=== PATIENT | female | born 1990 | race Caucasian/White ===

== ENCOUNTER 2017-09-17 20:37 | Outpatient (CLI) | payer MEDICAID, OTHER ==
[2017-09-17 21:32] LABS: APPEARANCE,URINE CLEAR; BILIRUBIN,URINE NEGATIVE (NEGATIVE); GLUCOSE, URINE NEGATIVE (NEGATIVE); KETONES,URINE 20 mg/dL (NEGATIVE); LEUKOCYTE ESTERASE,URINE NEGATIVE (NEGATIVE); NITRITE,URINE NEGATIVE (NEGATIVE); PROTEIN,URINE NEGATIVE (NEGATIVE); URINE SPECIFIC GRAVITY 1.002; UROBILINOGEN,URINE NEGATIVE mg/dL (<2.0)
[2017-09-17 21:47] LABS: URINE BARBITURATES SCREEN NEGATIVE; URINE METHADONE SCREEN NEGATIVE; URINE OPIATES LOW NEGATIVE; URINE PHENCYCLIDINE SCREEN NEGATIVE
== END 2017-09-17 23:10 | disposition home or self-care (01) ==
LOC: LC 20:37
PROVIDERS: ATTEND Obstetrics & Gynecology
PROC: 4A1HXCZ Monitoring of Products of Conception, Cardiac Rate, External Approach (ICD-10-PCS; principal; 2017-09-17)
DX: O47.03 False labor before 37 completed weeks of gestation, third trimester (principal); Z3A.33 33 weeks gestation of pregnancy
CPT/HCPCS: 59025; 80307; 81005

== ENCOUNTER 2017-09-20 19:05 | Outpatient (CLI) | payer MEDICAID ==
--- NOTE | 2017-09-20 19:16 | Non Stress Test Report ---
Non Stress Test Datetime Report Generated by CPN: 09/20/2017 19:16 DEMOGRAPHIC EGA NST: 33.1 INDICATION Indication for Study: Ordered by Provider URINE RESULTS Urine Protein, NST: Negative Urine Ketones - NST: Positive Urine Glucose - NST: Negative Urine Blood - NST: Negative MONITORING Monitor Explained: Monitor Explained; Test Explained; Patient Verbalized Understanding Time on Monitor: 09/17/2017 21:00 Time off Monitor: 09/17/2017 22:34 NST Duration: 94 NST INTERVENTIONS NST Interventions: PO Hydration; Reposition Patient Physician Notified NST: Dr Santillan BABY A: [id number] Contraction Frequency : irregular FHR Baseline : 140 Accelerations : 15X15 Decelerations : None Variability : Moderate 6-25bpm NST Review: Meets Criteria for Reactive NST NST Review and Verified By : Mauro Garcia rn NST Results: Reactive NST REPORT Report Trigger: Send Report
[2017-09-20 19:43] LABS: APPEARANCE,URINE CLEAR; BILIRUBIN,URINE NEGATIVE (NEGATIVE); GLUCOSE, URINE NEGATIVE (NEGATIVE); KETONES,URINE NEGATIVE (NEGATIVE); LEUKOCYTE ESTERASE,URINE NEGATIVE (NEGATIVE); NITRITE,URINE NEGATIVE (NEGATIVE); PROTEIN,URINE NEGATIVE (NEGATIVE); URINE SPECIFIC GRAVITY 1.006; UROBILINOGEN,URINE NEGATIVE mg/dL (<2.0)
[2017-09-20 19:54] LABS: URINE BARBITURATES SCREEN NEGATIVE; URINE METHADONE SCREEN NEGATIVE; URINE OPIATES LOW NEGATIVE
[2017-09-20 20:05] LABS: URINE PHENCYCLIDINE SCREEN NEGATIVE
--- NOTE | 2017-09-20 20:19 | Non Stress Test Report ---
Non Stress Test Datetime Report Generated by CPN: 09/20/2017 20:18 DEMOGRAPHIC Test Number: 2 EGA NST: 33.4 INDICATION Indication for Study: Ordered by Provider MONITORING Monitor Explained: Monitor Explained; Test Explained; Patient Verbalized Understanding Time on Monitor: 09/20/2017 19:27 Time off Monitor: 09/20/2017 20:02 NST Duration: 35 NST INTERVENTIONS NST Interventions: PO Hydration; Reposition Patient Physician Notified NST: Dr. Yun BABY A Movement : Present Contraction Frequency : irregular FHR Baseline : 140 Accelerations : 15X15 Decelerations : None Variability : Moderate 6-25bpm NST Review: Meets Criteria for Reactive NST NST Review and Verified By : Vazquez Rice RN NST Results: Reactive NST REPORT Report Trigger: Send Report
== END 2017-09-20 20:12 | disposition home or self-care (01) ==
LOC: LC 19:05
PROVIDERS: ATTEND Student in an Organized Health Care Education/Training Program
PROC: 4A1HXCZ Monitoring of Products of Conception, Cardiac Rate, External Approach (ICD-10-PCS; principal; 2017-09-20)
DX: O47.03 False labor before 37 completed weeks of gestation, third trimester (principal); Z3A.33 33 weeks gestation of pregnancy
CPT/HCPCS: 59025; 80307; 81001

== ENCOUNTER 2017-10-20 18:08 | Outpatient (CLI) | payer MEDICAID ==
[2017-10-20 19:17] LABS: APPEARANCE,URINE CLEAR; BILIRUBIN,URINE NEGATIVE (NEGATIVE); COLOR,URINE STRAW; GLUCOSE, URINE NEGATIVE (NEGATIVE); KETONES,URINE TRACE mg/dL (NEGATIVE); LEUKOCYTE ESTERASE,URINE TRACE (NEGATIVE); NITRITE,URINE NEGATIVE (NEGATIVE); PROTEIN,URINE NEGATIVE (NEGATIVE); URINE SPECIFIC GRAVITY 1.004; UROBILINOGEN,URINE NEGATIVE mg/dL (<2.0)
[2017-10-20] MEDS ORDERED: HYDROXYZINE PAMOATE 50 MG CAPSULE PO ONE (19:24)
[2017-10-20 19:29] LABS: URINE AMPHETAMINES SCREEN NEGATIVE; URINE BARBITURATES SCREEN NEGATIVE; URINE BENZODIAZEPINES SCREEN NEGATIVE; URINE COCAINE SCREEN NEGATIVE; URINE MARIJUANA (THC) SCREEN NEGATIVE; URINE METHADONE SCREEN NEGATIVE; URINE PHENCYCLIDINE SCREEN NEGATIVE
[2017-10-20] MEDS ORDERED: HYDROXYZINE PAMOATE 50 MG CAPSULE ONE (19:33)
[2017-10-20 20:20] LABS: APPEARANCE,URINE CLEAR; BILIRUBIN,URINE NEGATIVE (NEGATIVE); COLOR,URINE STRAW; GLUCOSE, URINE NEGATIVE (NEGATIVE); KETONES,URINE TRACE mg/dL (NEGATIVE); LEUKOCYTE ESTERASE,URINE TRACE (NEGATIVE); NITRITE,URINE NEGATIVE (NEGATIVE); PROTEIN,URINE NEGATIVE (NEGATIVE); URINE SPECIFIC GRAVITY 1.004; UROBILINOGEN,URINE NEGATIVE mg/dL (<2.0)
== END 2017-10-20 19:40 | disposition home or self-care (01) ==
LOC: LC 18:08
PROVIDERS: ATTEND Obstetrics & Gynecology
PROC: 4A1HXCZ Monitoring of Products of Conception, Cardiac Rate, External Approach (ICD-10-PCS; principal; 2017-10-20)
DX: O47.1 False labor at or after 37 completed weeks of gestation (principal); Z3A.37 37 weeks gestation of pregnancy
CPT/HCPCS: 59025; 81005; 81001; 80307; J3490

== ENCOUNTER 2017-10-27 10:32 | Outpatient (CLI) | payer MEDICAID ==
--- NOTE | 2017-10-27 10:37 | Non Stress Test Report ---
Non Stress Test Datetime Report Generated by CPN: 10/27/2017 10:37 DEMOGRAPHIC Test Number: 3 EGA NST: 37.6 INDICATION Indication for Study: Ordered by Provider Indication for Study (NST) Other: LC MONITORING Monitor Explained: Monitor Explained; Test Explained; Patient Verbalized Understanding Time on Monitor: 10/20/2017 18:25 Time off Monitor: 10/20/2017 19:27 NST Duration: 62 NST INTERVENTIONS NST Interventions: None; PO Hydration Physician Notified NST: Dr. Marcos BABY A: [id number] BABY A Movement : Present Contraction Frequency : 1.5-6 FHR Baseline : 130 Accelerations : 15X15 Decelerations : None Variability : Moderate 6-25bpm NST Review: Meets Criteria for Reactive NST NST Review and Verified By : WICHO Painting Results: Reactive NST REPORT Report Trigger: Send Report
[2017-10-27 10:59] LABS: APPEARANCE,URINE SLIGHTLY-CLOUDY; BILIRUBIN,URINE NEGATIVE (NEGATIVE); COLOR,URINE YELLOW; GLUCOSE, URINE NEGATIVE (NEGATIVE); KETONES,URINE NEGATIVE (NEGATIVE); LEUKOCYTE ESTERASE,URINE NEGATIVE (NEGATIVE); NITRITE,URINE NEGATIVE (NEGATIVE); PROTEIN,URINE NEGATIVE (NEGATIVE); URINE SPECIFIC GRAVITY 1.004; UROBILINOGEN,URINE NEGATIVE mg/dL (<2.0)
[2017-10-27 11:05] LABS: AMNISURE (ROM) NEGATIVE (NEGATIVE)
[2017-10-27 11:17] LABS: URINE AMPHETAMINES SCREEN NEGATIVE; URINE BARBITURATES SCREEN NEGATIVE; URINE BENZODIAZEPINES SCREEN NEGATIVE; URINE COCAINE SCREEN NEGATIVE; URINE MARIJUANA (THC) SCREEN NEGATIVE; URINE METHADONE SCREEN NEGATIVE; URINE PHENCYCLIDINE SCREEN NEGATIVE
--- NOTE | 2017-10-27 11:43 | Non Stress Test Report ---
Non Stress Test Datetime Report Generated by CPN: 10/27/2017 11:43 DEMOGRAPHIC EGA NST: 38.6 INDICATION Indication for Study: Ordered by Provider Indication for Study (NST) Other: LC MONITORING Monitor Explained: Monitor Explained; Test Explained; Patient Verbalized Understanding Time on Monitor: 10/27/2017 10:48 Time off Monitor: 10/27/2017 11:36 NST Duration: 48 NST INTERVENTIONS NST Interventions: PO Hydration Physician Notified NST: C Martinez CNM BABY A Movement : Present Contraction Frequency : irregular FHR Baseline : 135 Accelerations : 15X15 Decelerations : None Variability : Moderate 6-25bpm NST Review: Meets Criteria for Reactive NST NST Review and Verified By : Wilian Drummond RN NSGadiel Results: Reactive NST REPORT Report Trigger: Send Report
== END 2017-10-27 11:46 | disposition home or self-care (01) ==
LOC: LC 10:32
PROVIDERS: ATTEND Obstetrics & Gynecology Gynecology
PROC: 4A1HXCZ Monitoring of Products of Conception, Cardiac Rate, External Approach (ICD-10-PCS; principal; 2017-10-27)
DX: O47.1 False labor at or after 37 completed weeks of gestation (principal); Z3A.38 38 weeks gestation of pregnancy
CPT/HCPCS: 59025; 80307; 81005; 84112

== ENCOUNTER 2017-10-31 01:28 | Inpatient (IN) | payer MEDICAID ==
[2017-10-31 02:29] LABS: APPEARANCE,URINE CLOUDY; BILIRUBIN,URINE NEGATIVE (NEGATIVE); GLUCOSE, URINE NEGATIVE (NEGATIVE); KETONES,URINE NEGATIVE (NEGATIVE); LEUKOCYTE ESTERASE,URINE LARGE (NEGATIVE); NITRITE,URINE NEGATIVE (NEGATIVE); PROTEIN,URINE NEGATIVE (NEGATIVE); URINE SPECIFIC GRAVITY 1.002; UROBILINOGEN,URINE NEGATIVE mg/dL (<2.0)
[2017-10-31 02:39] LABS: COLOR,URINE COLORLESS
[2017-10-31 02:45] LABS: URINE AMPHETAMINES SCREEN NEGATIVE; URINE BARBITURATES SCREEN NEGATIVE; URINE BENZODIAZEPINES SCREEN NEGATIVE; URINE COCAINE SCREEN NEGATIVE; URINE MARIJUANA (THC) SCREEN NEGATIVE; URINE METHADONE SCREEN NEGATIVE; URINE PHENCYCLIDINE SCREEN NEGATIVE
[2017-10-31] MEDS ORDERED: RINGERS SOLUTION,LACTATED 1,000 ML IV PRN (03:46)
[2017-10-31] MEDS ORDERED: NALBUPHINE HCL INJ 10 MG/1 ML AMPULE IV PRN ×2 (04:00→04:30)
[2017-10-31 04:19] LABS: ABSOLUTE LYMPHOCYTES (AUTO) 2.1 10^3/uL (0.5-4.7); ABSOLUTE MONOCYTES (AUTO) 0.9 10^3/uL (0.1-1.4); ABSOLUTE NEUT (AUTO) 9.6 10^3/uL (1.7-8.2); BASOPHILS % (AUTO) 0.1 % (0-2); EOSINOPHILS % (AUTO) 0.4 % (0-6); HEMATOCRIT 31.1 % (36.0-47.0); HEMOGLOBIN 10.1 g/dL (12.0-15.5); LYMPHOCYTES % (AUTO) 16.6 % (13-45); MEAN CORPUSCULAR HEMOGLOBIN 21.2 pg (27.0-33.4); MEAN CORPUSCULAR HGB CONC 32.6 g/dL (32.0-36.0); MEAN CORPUSCULAR VOLUME 65 fl (80-97); MONOCYTES % (AUTO) 7.1 % (3-13); PLATELET COUNT 234 10^3/uL (150-450); RED BLOOD COUNT 4.78 10^6/uL (3.72-5.28); RED CELL DISTRIBUTION WIDTH 15.1 % (11.5-14.0); SEGMENTED NEUTROPHILS % (AUTO) 75.8 % (42-78); TOTAL CELLS COUNTED % (AUTO) 100 %; WHITE BLOOD COUNT 12.7 10^3/uL (4.0-10.5)
[2017-10-31 04:26] LABS: INTERNATIONAL RATION (INR) 0.92
[2017-10-31 04:27] LABS: FIBRINOGEN 414 mg/dL (209-497)
[2017-10-31] MEDS ORDERED: NALBUPHINE HCL INJ 10 MG/1 ML AMPULE ONE ×2 (04:30→08:38)
[2017-10-31] MEDS ORDERED: PROMETHAZINE HCL INJ 25 MG/1 ML VIAL ONE ×2 (04:30→08:39)
[2017-10-31] MEDS ORDERED: MISOPROSTOL 0.1 MG TABLET ONE ×2 (04:31→08:27)
[2017-10-31] MEDS: MISOPROSTOL 0.1 MG TABLET PV SCH ×2 (04:35→08:34)
--- NOTE | 2017-10-31 05:00 | RADIOLOGY REPORT (SQ) ---
EXAM DESCRIPTION: U/S OB LIMITED COMPLETED DATE/TIME: 10/31/2017 2:24 am REASON FOR STUDY: unable to obtain fhr, please check wellbeing . The patient is 38 weeks 6 d ays . COMPARISON: None. TECHNIQUE: Limited transabdominal grayscale ultrasound for evaluation of specific requested obstetri ernestine parameters. LIMITATIONS: None. FINDINGS: FHR: No heart rate was identified. PRESENTATION: Vertex. PLACENTA: Anterior. IMPRESSION: LIMITED OBSTETRICAL ULTRASOUND WITH MEASURED PARAMETERS DELINEATED ABOVE. NO HEAR T RATE IDENTIFIED. Trimester of : Third trimester - 28 weeks to delivery. COMMENT: Per the geodetic surveyor technologist, Dr. Rodríguez was present at the bedside during the ultraso und exam, aware of the above findings. TECHNICAL DOCUMENTATION: JOB ID: [id number] 2010 [employer]- All Rights Reserved
[2017-10-31] MEDS ORDERED: PROMETHAZINE HCL INJ 25 MG/1 ML VIAL IV SCH (06:00)
[2017-10-31] MEDS ORDERED: EPHEDRINE SULFATE INJ 50 MG/1 ML AMPULE ONE (11:36)
[2017-10-31] MEDS ORDERED: FENTANYL/BUPIVACAINE/NS/PF 200 MCG/100 ML RTUINJ EPI ONE (11:36)
[2017-10-31] MEDS ORDERED: BUPIVACAINE HCL 0.25 % INJ/PF (2.5 MG/1 ML) 30 ML VIAL ONE (11:36)
[2017-10-31] MEDS ORDERED: OXYTOCIN/NORMAL SALINE 20 UNIT/1,000 ML RTUINJ ONE (14:10)
[2017-10-31] MEDS ORDERED: MISOPROSTOL 0.2 MG TABLET ONE (14:10)
[2017-10-31] MEDS ORDERED: LIDOCAINE 1% INJ-PF (10 MG/ML) 30 ML SDV ONE (14:10)
[2017-10-31] MEDS ORDERED: BENZOCAINE/MENTHOL AEROSOL SPRAY 56 ML TOP PRN (17:23)
[2017-10-31] MEDS ORDERED: DIBUCAINE 1% OINTMENT 28 GM TP PRN (17:23)
[2017-10-31] MEDS ORDERED: ACETAMINOPHEN WITH CODEINE #3 TABLET PO PRN (17:23)
[2017-10-31] MEDS ORDERED: OXYTOCIN/NORMAL SALINE 20 UNIT/1,000 ML RTUINJ IV PRN (17:23)
[2017-10-31] MEDS ORDERED: DIPH/PERTUSS(ACELL)/TETANUS VAC/PF 0.5 ML SYR (>=10YO) IM PRN (17:23)
[2017-10-31] MEDS ORDERED: MEASLES,MUMPS&RUBELLA VACC/PF 0.5 ML VIAL SUBCUT PRN (17:23)
[2017-10-31] MEDS ORDERED: DOCUSATE SODIUM 100 MG CAPSULE PO SCH (18:00)
[2017-10-31] MEDS ORDERED: FERROUS SULFATE 325 MG TABLET PO SCH (18:00)
--- NOTE | 2017-10-31 19:19 | Delivery Summary ---
Del Sum A-C Datetime Report Generated by CPN: 10/31/2017 19:19 DELIVERY PERSONNEL DELIVERY PERSONNEL: [id number] Delivery Doctor:: Arcelia Martinez CNM Labor and Delivery Nurse:: India Magaña RN Additional Personnel: : Lizet BarkerALFONSO nelson MATERNAL INFORMATION Delivery Anesthesia: Epidural Medications After Delivery: Pitocin Drip 20 Units/1000ml NSS Maternal Complications: None Provider Comments: report received from FlorenciaFlower Parra CNM. Pt. c/c with bulging bag at introitus and urge to push. Bed prepped for delivery and SROM with contraction-clear fluid and small amount of blood noted. Pt. continued pushing with contractions and quickly delivered a baby girl through tight nuchal x3. Cord clamped x2 and cut. Cord blood obtained, Baby wiped and out of the room for measurements per pt's wishes. Placenta delivered spontaneously intact 3vc noted). Laceration as stated above. Fundus firm at U-2 and bleeding stable at this time. Pt, and Pt's mother in room and coping as expected at this time. Discussed pp care, discharge, warning s/s and when to seek care. Will discharge in the AM per Dr. Diaz after CBC results. LABOR SUMMARY EDC: 11/04/2017 00:00 No. Babies in Womb: 1 Attempted: No Labor Anesthesia: Epidural LABOR INFORMATION Reason for Induction: Demise Onset of Labor: 10/31/2017 12:41 Complete Dilatation: 10/31/2017 16:57 Cervical Ripening Agents: Cytotec @ Oxytocin: Induction Group B Beta Strep: Positive Steroids Given: None Reason Steroids Not Administered: Not Applicable Other Reason Not Administered: n/a MEMBRANES Membranes Rupture Method: Spontaneous Rupture of Membranes: 10/31/2017 17:13 Length of Rupture (hr): 0.02 Amniotic Fluid Color: Bloody Amniotic Fluid Amount: Large Amniotic Fluid Odor: Normal STAGES OF LABOR Stage 1 hr: 4 Stage 1 min: 16 Stage 2 hr: 0 Stage 2 min: 17 Stage 3 hr: 0 Stage 3 min: 2 Total Time in Labor hr: 4 Total Time in Labor min: 35 VAGINAL DELIVERY Episiotomy: None Laceration #1: Perineal Laceration Extension #1: First Degree Laceration Repair: Yes Laceration Repair Note: first degree MLL noted and repaired with 2-[address]- hemostasis achieved Sponge Count Correct: Yes Sharps Count Correct: Yes CSECTION DELIVERY Primary Indication: N/A Secondary Indication: N/A CSection Incidence: N/A Labor: N/A Elective: N/A CSection Incision: N/A BABY A INFORMATION Delivery Date/Time: 10/31/2017 17:14 Method of Delivery: Vaginal Born in Route : No : N/A Forceps: N/A Vacuum Extraction: N/A Shoulder Dystocia : No PRESENTATION/POSITION BABY A Presentation: Cephalic Cephalic Presentation: Vertex Breech Presentation: N/A PLACENTA INFORMATION BABY A Placenta Delivery Time : 10/31/2017 17:16 Placenta Method of Delivery: Spontaneous Placenta Status: Delivered INFANT INFORMATION BABY A Gestational Age at Delivery: 39.3 Gestational Status: Full Term- 39- 40.6 Weeks Outcome : Stillborn Sex: Female WEIGHT/LENGTH BABY A Infant Birthweight (gm): 2997 Weight (lb): 6 Weight (oz): 10 Length (in): 19.50 Infant Length (cm): 49.53 CORD INFORMATION BABY A No. Cord Vessels: 3 Nuchal Cord : Around Neck x2, Tight Cord Blood Taken: Yes-For Eval (Mom's Blood Type - or O+) Suction: None (Annotations: Data stored by [facility] on behalf of user) ASSESSMENT BABY A Skin to Skin: No SIGNATURES Assignment: Petr Diaz MD Signature: with User ID: Ceasar : with User ID: [email or web address]
[2017-10-31] MEDS ORDERED: ACETAMINOPHEN WITH CODEINE #3 TABLET ONE (19:41)
[2017-10-31] MEDS: ACETAMINOPHEN WITH CODEINE #3 TABLET PO PRN (20:28)
[2017-10-31] MEDS ORDERED: MAG HYDROX/AL HYDROX/SIMETH SUSP 30 ML UDCUP ONE (20:50)
[2017-10-31] MEDS ORDERED: ZOLPIDEM TARTRATE 5 MG TABLET ONE (21:05)
[2017-10-31] MEDS: ZOLPIDEM TARTRATE 5 MG TABLET PO PRN (21:06)
[2017-10-31] MEDS ORDERED: IBUPROFEN 800 MG TABLET PO SCH (22:00)
[2017-11-01] MEDS ORDERED: ZOLPIDEM TARTRATE 5 MG TABLET ONE (01:59)
[2017-11-01] MEDS: ZOLPIDEM TARTRATE 5 MG TABLET PO PRN (02:00)
[2017-11-01] MEDS ORDERED: SENNOSIDES/DOCUSATE 8.6-50 MG 1 EACH TABLET ONE (06:19)
[2017-11-01] MEDS ORDERED: PRENATAL VITAMIN W DHA CAPSULE PO ONE (06:19)
[2017-11-01] MEDS ORDERED: ACETAMINOPHEN WITH CODEINE #3 TABLET ONE (06:19)
[2017-11-01] MEDS ORDERED: FERROUS SULFATE 325 MG TABLET PO ONE (06:19)
[2017-11-01] MEDS: ACETAMINOPHEN WITH CODEINE #3 TABLET PO PRN (06:33)
[2017-11-01] MEDS ORDERED: IBUPROFEN 800 MG TABLET ONE (06:44)
[2017-11-01 07:33] LABS: HEMATOCRIT 28.7 % (36.0-47.0); HEMOGLOBIN 9.4 g/dL (12.0-15.5); MEAN CORPUSCULAR HEMOGLOBIN 21.3 pg (27.0-33.4); MEAN CORPUSCULAR HGB CONC 32.7 g/dL (32.0-36.0); MEAN CORPUSCULAR VOLUME 65 fl (80-97); PLATELET COUNT 216 10^3/uL (150-450); RED CELL DISTRIBUTION WIDTH 15.1 % (11.5-14.0); WHITE BLOOD COUNT 15.8 10^3/uL (4.0-10.5)
[2017-11-01] MEDS ORDERED: BENZOCAINE/MENTHOL AEROSOL SPRAY 56 ML ONE (09:24)
--- NOTE | 2017-11-01 09:41 | PDOC PROGRESS REPORT ---
Subjective-OB Progress Note for:: 11/01/17 Subjective: pt and hsb in room, grieving appropriately, discussing plans, events of delivery and past weekend, scant bleeding, ready to go home Physical Exam (OB) Vital Signs: Intake & Output 10/31/17 11/01/17 11/02/17 06:59 06:59 06:59 Weight 71.3 kg Objective-Diagnostic Laboratory: 11/01/17 07:09 11/01/17 07:09 WBC 15.8 H RBC 4.40 Hgb 9.4 L Hct 28.7 L MCV 65 L MCH 21.3 L MCHC 32.7 RDW 15.1 H Plt Count 216 Assessment and Plan(PN) - Assessment and Plan (1) vaginal delivery of full term stillborn Is this a current diagnosis for this admission?: Yes - Time Spent with Patient Time with patient: Less than 15 minutes Medications reviewed and adjusted accordingly: Yes - Disposition Anticipated Discharge: Home Within: Other - home today, F/U
--- NOTE | 2017-11-01 09:43 | PDOC DISCHARGE SUMMARY ---
Final Diagnosis Discharge Date: 11/01/17 - Final Diagnosis (1) vaginal delivery of full term stillborn Is this a current diagnosis for this admission?: Yes Discharge Data - Discharge Medication Prescriptions: Ibuprofen [Motrin 800 mg Tablet] 800 mg PO Q8HP PRN #60 tablet PRN Reason: Benzocaine/Menthol [Dermoplast Aerosol [place] 56 ml] 1 applic TOP PRN PRN #1 can PRN Reason: Docusate Sodium [Colace 100 mg Capsule] 100 mg PO BID #60 capsule Esomeprazole Magnesium [Nexium] 40 mg PO DAILY #30 capsule. Ferrous Sulfate [Feosol 325 mg Tablet] 325 mg PO BID #60 tablet Home Medications: Ferrous Sulfate [Iron] 325 mg PO DAILY 10/28/14 Vits96/Iron Fum/Folic [ Tablet] 1 tab PO DAILY 10/28/14 Loratadine [Claritin] 10 mg PO DAILY 09/20/17 Docusate Sodium [Colace] 100 mg PO DAILY 10/27/17 Simethicone [Gas-X] 125 mg PO PRN PRN 10/27/17 Benzocaine/Menthol [Dermoplast Aerosol [place] 56 ml] 1 applic TOP PRN PRN #1 can 10/31/17 Docusate Sodium [Colace 100 mg Capsule] 100 mg PO BID #60 capsule 10/31/17 Esomeprazole Magnesium [Nexium] 40 mg PO DAILY #30 capsule. 10/31/17 Ferrous Sulfate [Feosol 325 mg Tablet] 325 mg PO BID #60 tablet 10/31/17 Ibuprofen [Motrin 800 mg Tablet] 800 mg PO Q8HP PRN #60 tablet 10/31/17 Gestational Age: 39 Reason(s) for Admission: Induction of Labor, Other - demise Procedures: NST, Ultrasound Intrapartum Procedure(s): Spontaneous Vaginal Delivery - Diagnosis Test Laboratory: 10/31/17 10/31/17 11/01/17 01:40 04:07 07:09 RBC 4.78 4.40 Hgb 10.1 L 9.4 L Hct 31.1 L 28.7 L Urine Opiates Screen NEGATIVE - Discharge information/Instructions Discharge Activity: Activity As Tolerated, Pelvic Rest Discharge Diet: As Tolerated, Regular Disposition: HOME, SELF-CARE Follow up with: [facility] in: 2, Days
[2017-11-01] MEDS ORDERED: SENNOSIDES/DOCUSATE 8.6-50 MG 1 EACH TABLET PO SCH (10:00)
[2017-11-01] MEDS ORDERED: PRENATAL VITAMIN W DHA CAPSULE PO SCH (10:00)
--- NOTE | 2017-11-01 10:42 | Admission Physical ---
Datetime Report Generated by CPN: 11/01/2017 10:42 CURRENT ADMISSION Chief Complaint: Evaluation; Other Chief Complaint Other: decreased movement since yesterday at 3:00 pm Indication for Induction: Demise Indication for Induction: Term, Intrauterine ; Demise Admit Plan: Admit to Unit; Initiate Labor Induction Protocol ALLERGIES Medication Allergies: Yes Medication Allergies: Sulfa (Sulfonamide Antibiotics)/MO/Generalized claudia (10/31/2017); doxycycline/MO/Generalized claudia (10/31/2017); clindamycin/MO/Generalized claudia (10/31/2017); pineapple (10/31/2017); coconut (10/31/2017) Medication Allergies: Sulfa (Sulfonamide Antibiotics)/MO/Generalized claudia (10/27/2017); doxycycline/MO/Generalized claudia (10/27/2017); clindamycin/MO/Generalized claudia (10/27/2017); pineapple (10/27/2017); coconut (10/27/2017) Medication Allergies: Sulfa (Sulfonamide Antibiotics)/MO/Generalized claudia (10/20/2017); doxycycline/MO/Generalized claudia (10/20/2017); clindamycin/MO/Generalized claudia (10/20/2017); pineapple (10/20/2017); coconut (10/20/2017) Medication Allergies: Sulfa (Sulfonamide Antibiotics)/MO/Generalized claudia (09/20/2017); doxycycline/MO/Generalized claudia (09/20/2017); clindamycin/MO/Generalized claudia (09/20/2017); pineapple (09/20/2017); coconut (09/20/2017) Medication Allergies: Sulfa (Sulfonamide Antibiotics)/MO/Generalized claudia (09/17/2017); doxycycline/MO/Generalized claudia (09/17/2017); clindamycin/MO/Generalized claudia (09/17/2017); pineapple (09/17/2017); coconut (09/17/2017) Medication Allergies: Sulfa (Sulfonamide Antibiotics)/MO/Generalized claudia (09/17/2017); doxycycline/MO/Generalized claudia (09/17/2017); clindamycin/MO/Generalized claudia (09/17/2017) Medication Allergies: Sulfa (Sulfonamide Antibiotics)/MO/Generalized claudia (10/28/2014); doxycycline/MO/Generalized claudia (10/28/2014); clindamycin/MO/Generalized claudia (10/28/2014) Latex: No Latex Allergies (Annotations: Data stored by CPN on behalf of user) Food Allergies: cocnut, pineapple, pramod Environmental Allergies: none OBSTETRICAL HISTORY EDC: 11/04/2017 00:00 : 2 Para: 1 Term: 1 : 0 SAB: 0 IAB: 0 Ectopic: 0 Livin Cesareans: 0 VBACs: 0 Multiple Births: 0 Gestational Diabetes: No Rh Sensitization: No Incompetent Cervix: No SHAW: No Infertility: No ART Treatment: No Uterine Anomaly: Yes IUGR: No Hx Previous C/S: No Macrosomia: No Hx Loss/Stillborn: No PIH: No Hx : No Placenta Previa/Abruption: No Depression/PP Depression: No PTL/PROM: No Post Hemorrhage: No Current Procedures: Ultrasound; NST Obstetrical History Comments: Bicorniate Uterus, 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 baby has VSD G2: current, polyhydramnios, IUFD SEE RECORDS Alcohol: No Marijuana : No Cocaine: No Other Illicit Drugs: No Cigarettes: Never Smoker. [id number] MEDICAL HISTORY Diabetes: No Blood Transfusion: No Pulmonary Disease (Asthma, TB): Yes Breast Disease: No Hypertension: No Cow Buyer Surgery: No Heart Disease: No Hosp/Surgery: No Autoimmune Disorder: No Anesthetic Complications: No Kidney Disease: No Abnormal Pap Smear: No Neuro/Epilepsy: No Psychiatric Disorders: No Other Medical Diseases: Yes Hepatitis/Liver Disease: No Significant Family History: No Varicosities/Phlebitis: No Trauma/Violence : No Thyroid Dysfunction: No Medical History Comments: Thalasemia GERD back problems INFECTIOUS HISTORY Gonorrhea: No Genital Herpes: No Chlamydia: No Tuberculosis: No Syphilis: No Hepatitis: No HIV/AIDS Exposure: No Rash or Viral Illness: No HPV: No PHYSICAL EXAM General: Normal HEENT: Normal Neurologic: Normal Thyroid: Normal Heart: Normal Lungs: Normal Breast: Normal Back: Normal Abdomen: Normal Genitourinary Exam: Normal Extremities: Normal DTRs: Normal Pelvic Type: Adequate Vital Signs: Reviewed FETUS A EGA: 39.3 FHR- Baseline: 0 FHR Comments: demise confirmed with bedside sono performed by myself and by [facility] sono tech Estimated Weight (gm): 3000 Presentation: Vertex Admit Comment: records reviewed. No evidence for possible cause of demise at this time. Counseled patient and on need for admission and induction of labor. voiced understanding. PLANS FOR LABOR AND DELIVERY Labor and Delivery: None Pain Management: Epidural Circumcision: N/A INFORMED CONSENT Signature: with User ID: [email or web address]
== END 2017-11-01 10:40 | disposition home or self-care (01) | DRG 775 ==
LOC: LC 01:28 → LR 02:17
PROVIDERS: ADMIT Obstetrics & Gynecology; ATTEND Obstetrics & Gynecology
PROC: 10E0XZZ Delivery of Products of Conception, External Approach (ICD-10-PCS; principal; 2017-10-31)
PROC: 0HQ9XZZ Repair Perineum Skin, External Approach (ICD-10-PCS; 2017-10-31)
DX: O36.4XX0 Maternal care for intrauterine death, not applicable or unspecified (principal); O34.03 Maternal care for unspecified congenital malformation of uterus, third trimester; O69.1XX0 Labor and delivery complicated by cord around neck, with compression, not applicable or unspecified; O99.824 Streptococcus B carrier state complicating childbirth; O70.0 First degree perineal laceration during delivery; Q51.3 Bicornate uterus; Z3A.39 39 weeks gestation of pregnancy; Z37.1 Single stillbirth
CPT/HCPCS: 36415; 76815; 80307; 81005; 85025; 85027; 85362; 85384; 85610; 85730; 86592; 86850; 86900; 86901; J2300; J2550; J2590; J3490

== ENCOUNTER 2017-11-13 09:12 | Emergency (ER) | payer MEDICAID ==
--- NOTE | 2017-11-13 09:53 | ER Document Report ---
ED General - General Chief Complaint: Pain With Urination Stated Complaint: POSSIBLE UTI Time Seen by Provider: 11/13/17 09:38 Mode of Arrival: Ambulatory Information source: Patient Notes: 27 yr old female who delivered on 10/31 presents with concerns of burning on urination since yesterday with pressure in the suprapubic region. Pt had a small tear external during delivery and baby was a stillborn. TRAVEL OUTSIDE OF THE [place] IN LAST 30 DAYS: No - HPI Onset: Yesterday Onset/Duration: Sudden Quality of pain: Burning Severity: Mild Pain Level: 1 Associated symptoms: Other Exacerbated by: Other - urination Relieved by: Denies Similar symptoms previously: Yes Recently seen / treated by doctor: Yes - Related Data Allergies/Adverse Reactions: clindamycin [Clindamycin] Allergy (Intermediate, Verified 11/13/17 09:12) Generalized rash doxycycline [Doxycycline] Allergy (Intermediate, Verified 11/13/17 09:12) Generalized rash Sulfa (Sulfonamide Antibiotics) Allergy (Intermediate, Verified 11/13/17 09:12) Generalized rash coconut Allergy (Verified 11/13/17 09:12) pineapple Allergy (Verified 11/13/17 09:12) mangos Allergy (Intermediate, Uncoded 10/31/17 02:56) Generalized rash Past Medical History - Social History Smoking Status: Never Smoker Cigarette use (# per day): No Chew tobacco use (# tins/day): No Smoking Education Provided: No Family History: Reviewed & Not Pertinent Review of Systems - Review of Systems Notes: REVIEW OF SYSTEMS: CONSTITUTIONAL : Denies fever, chills, or sweats. Denies recent illness. EENT: Denies eye, ear, throat, or mouth pain or symptoms. Denies nasal or sinus congestion or discharge. Denies throat, tongue, or mouth swelling or difficulty swallowing. CARDIOVASCULAR: Denies chest pain. Denies palpitations or racing or irregular heart beat. Denies ankle edema. RESPIRATORY: Denies cough, cold, or chest congestion. Denies shortness of breath, difficulty breathing, or wheezing. GASTROINTESTINAL: Denies abdominal pain or distention. Denies nausea, vomiting , or diarrhea. Denies blood in vomitus, stools, or per rectum. Denies black, tarry stools. Denies constipation. GENITOURINARY: admits to burning on urination FEMALE GENITOURINARY: Denies vaginal bleeding, heavy or abnormal periods, irregular periods. Denies vaginal discharge or odor. MUSCULOSKELETAL: Denies back or neck pain or stiffness. Denies joint pain or swelling. SKIN: Denies rash, lesions or sores. HEMATOLOGIC : Denies easy bruising or bleeding. LYMPHATIC: Denies swollen, enlarged glands. NEUROLOGICAL: Denies confusion or altered mental status. Denies passing out or loss of consciousness. Denies dizziness or lightheadedness. Denies headache. Denies weakness or paralysis or loss of use of either side. Denies problems with gait or speech. Denies sensory loss, numbness, or tingling. Denies seizures. PSYCHIATRIC: Denies anxiety or stress. Denies depression, suicidal ideation, or homicidal ideation. ALL OTHER SYSTEMS REVIEWED AND NEGATIVE. PHYSICAL EXAMINATION: GENERAL: Well-appearing, well-nourished and in no acute distress. HEAD: Atraumatic, normocephalic. EYES: Pupils equal round and reactive to light, extraocular movements intact, conjunctiva are normal. ENT: Nares patent, oropharynx clear without exudates. Moist mucous membranes. NECK: Normal range of motion, supple without lymphadenopathy LUNGS: Breath sounds clear to auscultation bilaterally and equal. No wheezes rales or rhonchi. HEART: Regular rate and rhythm without murmurs ABDOMEN: Soft, nontender, nondistended abdomen. No guarding, no rebound. No masses appreciated. Female : exam performed with nurse in room , mild irritation at the base of the labia minora Musculoskeletal: Normal range of motion, no pitting or edema. No cyanosis. NEUROLOGICAL: Cranial nerves grossly intact. Normal speech, normal gait. Normal sensory, motor exams PSYCH: Normal mood, normal affect. SKIN: Warm, Dry, normal turgor, no rashes or lesions noted. Dictation was performed using [employer] voice recognition software Physical Exam - Vital signs Vitals: Temp Pulse Resp BP 98.8 F 66 16 121/74 11/13/17 09:16 11/13/17 09:16 11/13/17 09:16 11/13/17 09:16 Course - Re-evaluation Re-evalutation: 11/13/17 10:22 pt noted to have mild ulcerations at the base of the labia minora which is mildly tender on palpation, her ua has small wbc, , arabella ltreat with keflex at this time , no signs of retained placenta or intraabdominal infection at this time. After performing a Medical Screening Examination, I estimate there is LOW risk for ACUTE APPENDICITIS, BOWEL OBSTRUCTION, ACUTE CHOLECYSTITIS, PERFORATED DIVERTICULITIS, INCARCERATED HERNIA, PANCREATITIS, PELVIC INFLAMMATORY DISEASE, PERFORATED ULCER, ECTOPIC , or TUBO-OVARIAN ABSCESS, thus I consider the discharge disposition reasonable. Also, there is no evidence or peritonitis , sepsis, or toxicity. I have reevaluated this patient multiple times and no significant life threatening changes are noted. The patient and I have discussed the diagnosis and risks, and we agree with discharging home with close follow-up with the understanding that symptoms and presentations can change. We also discussed returning to the Emergency Department immediately if new or worsening symptoms occur. We have discussed the symptoms which are most concerning (e.g., bloody stool, fever, changing or worsening pain, vomiting) that necessitate immediate return. - Vital Signs Vital signs: Temp Pulse Resp BP Pulse Ox 98.8 F 66 16 121/74 11/13/17 09:16 11/13/17 09:16 11/13/17 09:16 11/13/17 09:16 - Laboratory Laboratory results interpreted by me: 11/13/17 09:45 Urine Blood SMALL H Ur Leukocyte Esterase SMALL H Discharge - Discharge Clinical Impression: Vaginal irritation UTI (urinary tract infection) Qualifiers: Urinary tract infection type: acute cystitis Hematuria presence: without hematuria Qualified Code(s): N30.00 - Acute cystitis without hematuria Condition: Stable Disposition: HOME, SELF-CARE Instructions: Urinary Tract Infection ([facility]) Additional Instructions: Follow up with your physician tomorrow for further care or return to the ED IMMEDIATELY if symptoms worsen or new concerns occur. If you cannot afford to follow up with your primary care physician a list of low cost clinics have been provided at the end of your discharge papers as well. Prescriptions: Cephalexin Monohydrate [Keflex 500 mg Capsule] 500 mg PO BID 7 Days capsule Phenazopyridine HCl [Pyridium 200 mg Tablet] 200 mg PO TID #9 tablet
[2017-11-13 10:18] LABS: APPEARANCE,URINE CLEAR; BILIRUBIN,URINE NEGATIVE (NEGATIVE); COLOR,URINE YELLOW; GLUCOSE, URINE NEGATIVE (NEGATIVE); KETONES,URINE NEGATIVE (NEGATIVE); LEUKOCYTE ESTERASE,URINE SMALL (NEGATIVE); NITRITE,URINE NEGATIVE (NEGATIVE); PROTEIN,URINE NEGATIVE (NEGATIVE); URINE SPECIFIC GRAVITY 1.009; UROBILINOGEN,URINE NEGATIVE mg/dL (<2.0)
[2017-11-13 10:36] VITALS: BP 120/91
== END 2017-11-13 10:31 | disposition home or self-care (01) ==
LOC: ER 09:12
DX: O86.22 Infection of bladder following delivery (principal); O86.19 Other infection of genital tract following delivery; Z88.1 Allergy status to other antibiotic agents; Z88.2 Allergy status to sulfonamides; Z91.018 Allergy to other foods
CPT/HCPCS: 81001; 87086; 87088; 87186; 99283